=== PATIENT | male | born 1960 | race Caucasian/White ===

== ENCOUNTER 2022-05-22 00:53 | Day surgery (SDC) | payer OTHER, SELFPAY ==
[2022-05-08 13:52] VITALS: BMI 29.9
[2022-05-22 08:50] VITALS: BP 150/78; PULSE 69; RESP 18; TEMP 35.6; O2SAT 100; BMI 28.7
--- NOTE | 2022-05-22 09:05 | P.PNAN_ITS ---
Anes - Initial Pre Proc Eval Procedure: Operation Date: 05/22/22 09:30 Proposed Procedures p Screening Colonoscopy - Moses Holliday MD Date/Time: 05/22/22 09:05 Surgeon: Moses Holliday MD Pre Op Diagnosis: neoplasm screening Patient Data Age: 61 Gender: M Height: 1.93 m Weight: 107.1 kg Last Vital Signs Temp 35.6 C L 05/22/22 08:50 Pulse 69 05/22/22 08:50 Resp 18 05/22/22 08:50 BP 150/78 H 05/22/22 08:50 Pulse Ox 100 05/22/22 08:50 O2 Del Method Room Air 05/22/22 08:50 Allergies Allergy/AdvReac Type Severity Reaction Status Date / Time No Known Allergies Allergy Unknown Verified 05/22/22 08:55 Home Medications Medication Instructions Recorded Confirmed Type cholecalciferol (vitamin D3) 250 250 mcg PO DAILY 12/12/19 05/22/22 History mcg (10,000 unit) capsule ascorbic acid (vitamin C) 500 mg 250 mg PO DAILY 10/08/21 05/22/22 History tablet vitamin E (dl, acetate) 180 mg 180 mg PO DAILY 04/07/22 05/22/22 History (400 unit) capsule Patient hx anesthesia problems: none Family hx anesthesia problems: none Results Review: All pre-operative results and documents have been reviewed as part of the pre- operative evaluation. [facility] Past Medical History Medical History (Updated 05/22/22 @ 09:06 by Mack Fernandez DO) Hearing loss Unspecified atrial fibrillation Family History Family History Mother Diabetes mellitus Carcinoma of colon Family history of coronary artery disease Family history of cardiovascular disease Father Family history of malignant neoplasm Social History Social History Smoking status: Never smoker Alcohol intake: current Drinks per week: 2 Substance use: never Substance use type: does not use Lack of Transportation: No Lack of Food: Never True Current Housing: I Have Housing Concerned About Future Housing: No Difficulty Paying Gas/Electric Bills: No Difficulty Paying for Meds: No Currently Unemployed: No Education: Trade/Vocational Certificate Difficulty w/ Childcare or Family Care: No Living arrangements: with family Additional living arrangements comments: Occupation/Education: retired Gender identity (if verbalized by the patient): Male Sexual Orientation (if Verbalized by the Patient): Straight or Heterosexual Spiritual care concerns: No Agree to blood products: Yes Anes - Eval Final PreProcedure Day of Procedure 05/22/22 09:05 Patient weight: overweight Heart: regular rate and rhythm Lungs: clear to auscultation Airway: Mallampati scale class II Neurological: alert and oriented Last oral intake: >/= 8 hours ASA classification: III Emergent: no Anesthetic plan: proceed Anesthesia type and monitoring: general GIVS and standard monitoring Results Review: All pre-operative results and documents have been reviewed as part of the pre- operative evaluation. Informed Consent: The patient's anesthetic plan and its attendant risks and benefits were discussed with the patient/family/POA. Questions were solicited and answers provided to the satisfaction of the patient/family/PO
[2022-05-22] MEDS: LACTATED RINGERS 1,000 ML 150 ML IV CONT (09:09)
--- NOTE | 2022-05-22 09:20 | PM.HPGS ---
History of Present Illness History of Present Illness Consent: Risks, benefits, and alternatives have been discussed and questions answered. Patient agrees to proceed with procedure. Chief complaint: neoplasm screening Narrative: Eric Askew is a 61 year old male Presents for screening colonoscopy. Patient's family history is significant that his mother had colon cancer. Patient's previous colonoscopy 2017 was unremarkable. Patient reports that his current weight appetite and bowel movements are normal. He denies abdominal pain. He has had no bleeding. Patient presents today for screening colonoscopy. Review of Systems Review of Systems: Review of systems noncontributory. [facility] Past Medical History Medical History (Updated 05/22/22 @ 09:21 by Moses Holliday MD) Hearing loss Unspecified atrial fibrillation Family History Family History Mother Diabetes mellitus Carcinoma of colon Family history of coronary artery disease Family history of cardiovascular disease Father Family history of malignant neoplasm Social History Social History Smoking status: Never smoker Alcohol intake: current Drinks per week: 2 Substance use: never Substance use type: does not use Lack of Transportation: No Lack of Food: Never True Current Housing: I Have Housing Concerned About Future Housing: No Difficulty Paying Gas/Electric Bills: No Difficulty Paying for Meds: No Currently Unemployed: No Education: Trade/Vocational Certificate Difficulty w/ Childcare or Family Care: No Living arrangements: with family Additional living arrangements comments: Occupation/Education: retired Gender identity (if verbalized by the patient): Male Sexual Orientation (if Verbalized by the Patient): Straight or Heterosexual Spiritual care concerns: No Agree to blood products: Yes Meds Home Medications and Allergies Home Medications Medication Instructions Recorded Confirmed Type cholecalciferol (vitamin D3) 250 250 mcg PO DAILY 12/12/19 05/22/22 History mcg (10,000 unit) capsule ascorbic acid (vitamin C) 500 mg 250 mg PO DAILY 10/08/21 05/22/22 History tablet vitamin E (dl, acetate) 180 mg 180 mg PO DAILY 04/07/22 05/22/22 History (400 unit) capsule Allergies Allergy/AdvReac Type Severity Reaction Status Date / Time No Known Allergies Allergy Unknown Verified 05/22/22 08:55 Vital Signs Vital Signs - 24 hr 05/22/22 08:50 Temperature 96.1 F L Pulse Rate 69 Respiratory Rate 18 Blood Pressure 150/78 H Pulse Oximetry 100 Oxygen Delivery Room Air Exam Narrative: Physical exam reveals patient to be alert. Vital signs stable. HEENT exam is unremarkable. Patient is anicteric. Lungs are clear to auscultation and percussion. Heart is without murmur or extra sounds. Abdomen bowel sounds are present soft nontender with no organomegaly. Digital external rectal exam is normal. Assessment and Plan Assessment and plan (1) Family history of colon cancer in mother: Code(s): Z80.0 - Family history of malignant neoplasm of digestive organs Status: Acute Assessment and Plan: Patient's mother has had colon cancer. For this reason screening colonoscopy is advised now and should be considered to 5 year intervals in the future.
[2022-05-22 10:15] VITALS: BP 121/64; PULSE 43; RESP 15; O2SAT 99
[2022-05-22 10:25] VITALS: BP 123/72; PULSE 46; RESP 19; O2SAT 98
[2022-05-22 10:35] VITALS: BP 126/76; PULSE 45; RESP 19; O2SAT 98
== END 2022-05-22 11:07 | disposition home or self-care (01) ==
PROVIDERS: PCP Family Medicine; Visit Provider Internal Medicine Gastroenterology
PROC: 0DJD8ZZ Inspection of Lower Intestinal Tract, Via Natural or Artificial Opening Endoscopic (ICD-10-PCS; CPT 45378; principal; 2022-05-22 09:30)
DX: Z12.11 Encounter for screening for malignant neoplasm of colon (principal); K64.8 Other hemorrhoids; Z80.0 Family history of malignant neoplasm of digestive organs
CPT/HCPCS: 45378; J2704; J7120